=== PATIENT | female | born 1995 | race Caucasian/White ===

== ENCOUNTER 2017-07-13 09:07 | Emergency (ER) | payer SELFPAY ==
[2017-07-13 09:13] VITALS: RESP 18; TEMP 98
--- NOTE | 2017-07-13 09:44 | C.PDOC ---
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 ACCID STUCK BW CAR DOOR. CO PAIN, CUT TO FINGER. NO OTHER ASSOC SX OR INJURY EXMA NAD EXT L HAND +SUPERFICIAL U-SHAPED LAC OVER CUTICLE FOLD L 2ND FINGER. <2 MM SUBCONJ HEMATOMA NEAR NAIL FOLD. NO DEFORM. AROM WO DIFF. +BRUISING FINGER PAD NEURO INTACT REMAINDER NEG Time Seen by Provider: 07/13/17 09:39 Chief Complaint (Nursing): Finger,Hand,&Wrist History Per: Patient History/Exam Limitations: no limitations Onset/Duration Of Symptoms: Sudden Onset (HEAD OF MERCHANDISE BUYING) Current Symptoms Are (Timing): Still Present Past Medical History Reviewed: Historical Data, Nursing Documentation, Vital Signs Vital Signs: Last Vital Signs Temp 98 F 07/13/17 09:11 Pulse 72 07/13/17 09:59 Resp 18 07/13/17 09:59 BP 136/75 07/13/17 09:59 Pulse Ox 98 07/13/17 09:59 Family History: States: No Known Family Hx - Social History Hx Alcohol Use: No Hx Substance Use: No - Immunization History Hx Tetanus Toxoid Vaccination: No Hx Influenza Vaccination: No Hx Pneumococcal Vaccination: No Review Of Systems Except As Marked, All Systems Reviewed And Found Negative. Musculoskeletal: Positive for: Other ((+) Left 2nd finger injury.). Negative for: Neck Pain, Shoulder Pain Neurological: Negative for: Weakness, Numbness Physical Exam - Physical Exam Appears: Non-toxic, No Acute Distress Skin: Warm, Dry Head: Atraumatic, Normacephalic Oral Mucosa: Moist Cardiovascular: Rhythm Regular, No Murmur Respiratory: Normal Breath Sounds, No Rales, No Rhonchi, No Stridor, No Wheezing Extremity: Normal ROM, Capillary Refill (<2 secs), No Deformity, Other (LEFT HAND SUPERFICIAL U-SHAPED LACERATION OVER CUTICLE FOLD L 2ND FINGER. <2 MM SUBCONJ HEMATOMA NEAR NAIL FOLD. ) Neurological/Psych: Oriented x3, Normal Speech, Normal Motor ED Course And Treatment O2 Sat by Pulse Oximetry: 100 (RA) Pulse Ox Interpretation: Normal () - Other Rad X-Ray - Left Hand, 2nd Finger X-Ray: Interpreted by Me, Viewed By Me Interpretation: Neg. Laceration - Laceration Repair 2 Wound Length (In cm): 2 Description Of Wound: Irregular Wound Cleansed With: Betadine, Sterile Saline Wound Examination: Irrigated With Saline, No FB With Wound Exploration, No Tendon Injury With Wound Exploration Wound Closure: Skin Glue Wound Complexity: Simple Medical Decision Making Medical Decision Making: PLAN: * X-Ray - Left Hand, 2nd Finger * Tylenol PO Disposition Counseled Patient/Family Regarding: Studies Performed, Diagnosis, Need For Followup - Disposition Referrals: Frantz Osborn MD [Staff Provider] - Disposition: HOME/ ROUTINE Disposition Time: 09:47 Condition: IMPROVED Instructions: Subungual Hematoma (ED), Skin Adhesive Care (ED) Forms: Skin Scan (Frisian), School Excuse, Work Excuse - Clinical Impression Clinical Impression: Finger contusion, Finger laceration, Subungual contusion of finger - Scribe Statement The provider has reviewed the documentation as recorded by the Shondaibe Tesha Webb Provider Attestation: All medical record entries made by the Shondaibrich were at my direction and personally dictated by me. I have reviewed the chart and agree that the record accurately reflects my personal performance of the history, physical exam, medical decision making, and the department course for this patient. I have also personally directed, reviewed, and agree with the discharge instructions and disposition. Orthopedic Care Application Of:: Finger Splint
[2017-07-13 10:00] VITALS: BP 136/75; PULSE 72
--- NOTE | 2017-07-13 10:30 | RAD ---
PROCEDURE: Left Index finger radiographs. HISTORY: TRAUMA COMPARISON: None available. TECHNIQUE: AP radiograph of the left hand, as well as spot oblique and lateral images of index finger were obtained. FINDINGS: LEFT INDEX FINGER: Unremarkable left index finger, without acute displaced fracture identified. Remainder of the left hand (as seen on the AP view) grossly intact. JOINTS: No dislocation. SOFT TISSUES: Unremarkable. No evidence of radiopaque foreign body. OTHER FINDINGS: None. IMPRESSION: No acute displaced fracture or subluxation identified. If symptoms persist or if there is continued clinical concern, x-ray follow-up in 7-10 days should be considered.
[2017-07-13 10:38] VITALS: O2SAT 100
== END 2017-07-13 10:00 | disposition home or self-care (01) ==
LOC: C.ER 09:07
DX: S61.211A Laceration without foreign body of left index finger without damage to nail, initial encounter (principal); S60.122A Contusion of left index finger with damage to nail, initial encounter; W23.0XXA Caught, crushed, jammed, or pinched between moving objects, initial encounter

== ENCOUNTER 2018-04-25 16:42 | Emergency (ER) | payer OTHER ==
--- NOTE | 2018-04-25 17:17 | C.PDOC ---
History Of Present Illness 23 y/o female presents to ED with c/o right ankle pain after walking and twisting foot yesterday. Patient is able to ambulate with no difficulties. Denies change in sensation, weakness, or any other complaints at this time. Time Seen by Provider: 04/25/18 17:01 Chief Complaint (Nursing): Lower Extremity Problem/Injury History Per: Patient History/Exam Limitations: no limitations Onset/Duration Of Symptoms: Days Current Symptoms Are (Timing): Still Present Past Medical History Reviewed: Historical Data, Nursing Documentation, Vital Signs Vital Signs: Last Vital Signs Temp 99.5 F 04/25/18 18:14 Pulse 85 04/25/18 18:14 Resp 18 04/25/18 18:14 BP 122/82 04/25/18 18:14 Pulse Ox 97 04/25/18 18:36 - Medical History PMH: No Chronic Diseases Surgical History: No Surg Hx Family History: States: No Known Family Hx - Social History Hx Alcohol Use: No Hx Substance Use: No - Immunization History Hx Tetanus Toxoid Vaccination: No Hx Influenza Vaccination: No Hx Pneumococcal Vaccination: No Review Of Systems Musculoskeletal: Positive for: Foot Pain. Negative for: Leg Pain Skin: Negative for: Rash, Bruising Neurological: Negative for: Weakness, Numbness Physical Exam - Physical Exam Appears: Non-toxic, No Acute Distress Skin: Warm, Dry, No Rash Head: Atraumatic, Normacephalic Eye(s): bilateral: Normal Inspection, EOMI Nose: Normal Oral Mucosa: Moist Neck: Supple Chest: Symmetrical Respiratory: No Accessory Muscle Use Extremity: Normal ROM, Tenderness (to right lateral malleolus), No Calf Tenderness, Capillary Refill (<2 seconds), No Deformity, Swelling (to right lateral malleolus) Pulses: Left Dorsalis Pedis: Normal, Right Dorsalis Pedis: Normal Neurological/Psych: Oriented x3, Normal Motor, Normal Sensation ED Course And Treatment O2 Sat by Pulse Oximetry: 97 (RA) Pulse Ox Interpretation: Normal Progress Note: xray showed no fracture or dislocation. Aircast applied by clinical laboratory technologist and patient instructed RICE with follow up to ortho in 1-2 days. Disposition - Disposition Referrals: Christopher Dawn III, MD [Staff Provider] - Disposition: HOME/ ROUTINE Disposition Time: 17:15 Condition: STABLE Additional Instructions: Rest, ice and elevate the area. 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 - Scribe Statement The provider has reviewed the documentation as recorded by the Shondaibrich Pennington All medical record entries made by the Ari were at my direction and personally dictated by me. I have reviewed the chart and agree that the record accurately reflects my personal performance of the history, physical exam, medical decision making, and the department course for this patient. I have also personally directed, reviewed, and agree with the discharge instructions and disposition.
[2018-04-25 18:14] VITALS: BP 122/82; PULSE 85; RESP 18; TEMP 99.5
--- NOTE | 2018-04-25 18:18 | RAD ---
Date of service: 04/25/2018 PROCEDURE: Right Ankle Radiographs. HISTORY: sprain COMPARISON: None FINDINGS: BONES: No acute fracture. JOINTS: Ankle mortise maintained. Talar dome intact SOFT TISSUES: Bimalleolar soft tissue swelling OTHER FINDINGS: Small ankle joint effusion. IMPRESSION: Bimalleolar soft tissue swelling and small ankle joint effusion without demonstrated fracture or dislocation.
[2018-04-25 18:35] VITALS: O2SAT 97
== END 2018-04-25 18:20 | disposition home or self-care (01) ==
LOC: C.ER 16:42
DX: S93.401A Sprain of unspecified ligament of right ankle, initial encounter (principal); X50.9XXA Other and unspecified overexertion or strenuous movements or postures, initial encounter; Y93.01 Activity, walking, marching and hiking

== ENCOUNTER 2018-06-14 08:18 | Emergency (ER) | payer OTHER ==
[2018-06-14 08:29] VITALS: BP 156/80; PULSE 80; RESP 20; TEMP 98.4; O2SAT 100
--- NOTE | 2018-06-14 09:52 | C.PDOC ---
History Of Present Illness 23 year old female presents to the ED for evaluation of a persistent cough, subjected fever and congestion which began 6 days ago. Patient has tried [id number] medications without relief. She has not taken any medication today. Patient denies sore throat, shortness of breath, leg swelling, n/v/d, or abdominal pain. Time Seen by Provider: 06/14/18 08:25 Chief Complaint (Nursing): Cough, Cold, Congestion History Per: Patient History/Exam Limitations: no limitations Onset/Duration Of Symptoms: Hrs Current Symptoms Are (Timing): Still Present Associated Symptoms: Fever, Cough, Nasal Congestion Additional History Per: Patient Past Medical History Reviewed: Historical Data, Nursing Documentation, Vital Signs Vital Signs: Last Vital Signs Temp 98.4 F 06/14/18 08:24 Pulse 80 06/14/18 08:24 Resp 20 06/14/18 08:24 BP 156/80 H 06/14/18 08:24 Pulse Ox 100 06/14/18 08:24 - Medical History PMH: No Chronic Diseases Surgical History: No Surg Hx Family History: States: Unknown Family Hx - Social History Hx Alcohol Use: No Hx Substance Use: No - Immunization History Hx Tetanus Toxoid Vaccination: Yes Hx Influenza Vaccination: No Hx Pneumococcal Vaccination: (unk) Review Of Systems Constitutional: Positive for: Fever ENT: Positive for: Nose Congestion Respiratory: Positive for: Cough, Sputum. Negative for: Shortness of Breath Physical Exam - Physical Exam Appears: Non-toxic, No Acute Distress Skin: Normal Color, Warm, Dry Head: Atraumatic, Normacephalic Eye(s): bilateral: Normal Inspection, EOMI Ear(s): Bilateral: Normal Nose: Normal, No Discharge Oral Mucosa: Moist Throat: Normal, No Erythema, No Exudate Neck: Normal ROM, Supple Chest: Symmetrical, No Deformity, No Tenderness Cardiovascular: Rhythm Regular Respiratory: Normal Breath Sounds, No Rales, No Rhonchi, No Wheezing Extremity: Normal ROM, Capillary Refill (less than 2 seconds ) Neurological/Psych: Oriented x3, Normal Speech, Normal Cognition ED Course And Treatment O2 Sat by Pulse Oximetry: 100 (on RA ) Pulse Ox Interpretation: Normal - Other Rad CXR X-Ray: Interpreted by Me, Viewed By Me, Read By Radiologist Interpretation: Date of service: 06/14/2018. HISTORY: pain. COMPARISON: No prior. TECHNIQUE: Chest PA and lateral. FINDINGS: LUNGS: No active pulmonary disease. PLEURA: No significant pleural effusion identified. No pneumothorax apparent. CARDIOVASCULAR: Normal. OSSEOUS STRUCTURES: No significant abnormalities. VISUALIZED UPPER ABDOMEN: Normal. OTHER FINDINGS: None. IMPRESSION: No active disease. Progress Note: CXR ordered and reviewed. On reassessment, patient is resting comfortably, remains afebrile, and is showing no signs of distress. No chest pain. No sob. tolerating po. Patient is stable for discharge and is advised to f/u with PMD within 1-2 days for further evaluation. Disposition - Disposition Disposition: HOME/ ROUTINE Disposition Time: 09:50 Condition: STABLE Additional Instructions: Vaya a barnard mdico o la clnica en 2-5 fuller sin falta, para mas evaluacin. [place] los medicamentos steff indicado. Volver a la issac de emergencia en cualquier momento si los sntomas persisten o empeoran. Prescriptions: Azithromycin [Zithromax] 250 mg PO DAILY #6 tab Benzonatate [Tessalon Perle] 100 mg PO TID PRN #15 capsule PRN Reason: Cough Instructions: Acute Bronchitis, Adult (DC) Forms: [employer] (Taiwanese), Work Excuse Print Language: BRUNEIAN - Clinical Impression Clinical Impression: Bronchitis - PA / SIEVE MAKER / Resident Statement MD/DO has reviewed & agrees with the documentation as recorded. - Scribe Statement The provider has reviewed the documentation as recorded by the Scribe (Ayse Andre) All medical record entries made by the Scribe were at my direction and personally dictated by me. I have reviewed the chart and agree that the record accurately reflects my personal performance of the history, physical exam, medical decision making, and the department course for this patient. I have also personally directed, reviewed, and agree with the discharge instructions and disposition.
--- NOTE | 2018-06-14 10:01 | RAD ---
Date of service: 06/14/2018 HISTORY: pain COMPARISON: No prior. TECHNIQUE: Chest PA and lateral FINDINGS: LUNGS: No active pulmonary disease. PLEURA: No significant pleural effusion identified. No pneumothorax apparent. CARDIOVASCULAR: Normal. OSSEOUS STRUCTURES: No significant abnormalities. VISUALIZED UPPER ABDOMEN: Normal. OTHER FINDINGS: None. IMPRESSION: No active disease.
== END 2018-06-14 10:23 | disposition home or self-care (01) ==
LOC: C.ER 08:18
DX: J40 Bronchitis, not specified as acute or chronic (principal)

== ENCOUNTER 2018-06-16 08:26 | Emergency (ER) | payer OTHER ==
[2018-06-16 08:38] VITALS: BP 123/85; PULSE 63; RESP 18; TEMP 99.3; O2SAT 98
--- NOTE | 2018-06-16 09:08 | C.PDOC ---
History Of Present Illness 23-year-old female, presents to the Emergency Department with complaints of a productive cough x2 weeks. Patient states she feels nauseated, she was seen in ED two days ago and is taking antibiotics. Denies shortness of breath, nausea/vomiting, fever or chills. Patient needs work excuse note. Time Seen by Provider: 06/16/18 08:51 Chief Complaint (Nursing): Cough, Cold, Congestion History Per: Patient History/Exam Limitations: no limitations Past Medical History Reviewed: Historical Data, Nursing Documentation, Vital Signs Vital Signs: Last Vital Signs Temp 99.3 F 06/16/18 08:37 Pulse 63 06/16/18 08:37 Resp 18 06/16/18 08:37 BP 123/85 06/16/18 08:37 Pulse Ox 98 06/16/18 08:37 Family History: States: No Known Family Hx - Social History Hx Alcohol Use: No Hx Substance Use: No - Immunization History Hx Tetanus Toxoid Vaccination: Yes Hx Influenza Vaccination: No Hx Pneumococcal Vaccination: (unk) Review Of Systems Constitutional: Negative for: Fever, Chills Cardiovascular: Negative for: Chest Pain Respiratory: Positive for: Cough, Sputum Gastrointestinal: Positive for: Nausea. Negative for: Vomiting Musculoskeletal: Negative for: Back Pain Skin: Negative for: Rash Neurological: Negative for: Weakness Physical Exam - Physical Exam Appears: Non-toxic, No Acute Distress Skin: Warm, Dry, No Rash Head: Atraumatic Eye(s): bilateral: Normal Inspection Ear(s): Bilateral: Normal Nose: Normal Oral Mucosa: Moist Lips: Normal Appearing Throat: No Erythema, No Exudate, No Drooling, No Mass Neck: Normal ROM Cardiovascular: Rhythm Regular, No Murmur Respiratory: No Decreased Breath Sounds, No Accessory Muscle Use Extremity: Normal ROM, No Deformity Neurological/Psych: Oriented x3, Normal Speech ED Course And Treatment O2 Sat by Pulse Oximetry: 98 Pulse Ox Interpretation: Normal (RA) Disposition Counseled Patient/Family Regarding: Diagnosis, Need For Followup - Disposition Referrals: Darcy Pittman MD [Staff Provider] - Disposition: HOME/ ROUTINE Disposition Time: 09:07 Condition: STABLE Additional Instructions: Continuar y terminar el antibitico y la medicina para la tos. Por favor, consulte a barnard mdico para recibir ms atencin. Instructions: Acute Bronchitis, Adult (DC) Forms: Work Excuse Print Language: [place] - POA Present On Arrival: None - Clinical Impression Clinical Impression: Bronchitis, Encounter to obtain excuse from work - Scribe Statement The provider has reviewed the documentation as recorded by the Scribe (Govind Yoon) All medical record entries made by the Scribe were at my direction and personally dictated by me. I have reviewed the chart and agree that the record accurately reflects my personal performance of the history, physical exam, medical decision making, and the department course for this patient. I have also personally directed, reviewed, and agree with the discharge instructions and disposition.
== END 2018-06-16 09:22 | disposition home or self-care (01) ==
LOC: C.ER 08:26 → C.5E 09:01 → UNDOADMIN 09:01 → C.ER 09:22
DX: J40 Bronchitis, not specified as acute or chronic (principal); Z02.79 Encounter for issue of other medical certificate

== ENCOUNTER 2018-07-11 13:58 | Emergency (ER) | payer OTHER ==
[2018-07-11 14:04] VITALS: RESP 20
[2018-07-11] MEDS ORDERED: Sodium Chloride 0.9% 1,000 ML IV STA (14:58)
[2018-07-11] MEDS ORDERED: Dexamethasone 4 mg/1 ml IVP STA (14:58)
[2018-07-11 15:29] LABS: BASO % 0.6 % (0.0-2.0); EOS % 0.4 % (0.0-4.0); HEMOGLOBIN 12.7 g/dL (11.0-16.0); LYMPH # 1.4 K/uL (1.0-4.3); LYMPH % 17.3 % (20.0-40.0); MEAN CELL VOLUME 76.9 fL (81.0-99.0); MEAN CORPUSCULAR HEMOGLOBIN 26.5 pg (27.0-31.0); MEAN CORPUSCULAR HGB CONC 34.5 g/dL (33.0-37.0); MEAN PLATELET VOLUME 8.3 fL (7.2-11.7); MONO # 0.8 K/uL (0.0-0.8); MONO % 9.8 % (0.0-10.0); NEUT % 71.9 % (50.0-75.0); RBC 4.8 Mil/uL (3.80-5.20); RED CELL DISTRIBUTION WIDTH 15.5 % (11.5-14.5); WHITE BLOOD COUNT 8.4 K/uL (4.8-10.8)
[2018-07-11 15:34] LABS: HCG,QUALITATIVE URINE NEGATIVE (NEGATIVE)
[2018-07-11 15:43] LABS: ALB/GLOB RATIO 1.2 (1.0-2.1); ALBUMIN 4.5 g/dL (3.5-5.0); ALT/SGPT 23 U/L (9-52); AST/SGOT 22 U/L (14-36); BLOOD UREA NITROGEN 7 mg/dL (7-17); CALCIUM 9.6 mg/dl (8.6-10.4); GFR NON-AFRICAN AMERICAN > 60
[2018-07-11 15:46] LABS: SQUAMOUS EPITHIAL < 1 /hpf (0-5); URINE BACTERIA RARE (<OCC); URINE BILIRUBIN NEGATIVE (NEGATIVE); URINE BLOOD 3+ (NEGATIVE); URINE CLARITY Clear (Clear); URINE COLOR Yellow (YELLOW); URINE GLUCOSE (UA) NORMAL (Normal); URINE LEUKOCYTE ESTERASE TRACE Leu/uL (Negative); URINE PROTEIN NEGATIVE (NEGATIVE)
[2018-07-11] MEDS ORDERED: Sodium Chloride 0.9% 1,000 ML ONE (15:58)
[2018-07-11] MEDS ORDERED: Iodixanol 320 MG/ML 100 ML BOTTLE IV ONE (17:04)
[2018-07-11 17:56] VITALS: BP 125/83; PULSE 98; TEMP 99; O2SAT 98
--- NOTE | 2018-07-11 18:12 | CT ---
Date of service: 07/11/2018 PROCEDURE: CT NECK WITH CONTRAST HISTORY: PAIN/SWELLING COMPARISON: None available. TECHNIQUE: CT of the neck with intravenous contrast. Coronal and sagittal reformats generated. Intravenous contrast dose: 100 cc Visipaque 320 Radiation dose: Total exam DLP = 483.62 mGy-cm. This CT exam was performed using one or more of the following dose reduction techniques: Automated exposure control, adjustment of the mA and/or kV according to patient size, and/or use of iterative reconstruction technique. FINDINGS: NASOPHARYNX: Unremarkable. SUPRAHYOID NECK: Tonsillar hypertrophy. The palatine tonsils are enlarged bilaterally. No evidence of peritonsillar abscess. INFRAHYOID NECK: Unremarkable larynx, hypopharynx, and supraglottic space. Vocal cords intact. MASS: Lymphadenopathy asymmetrical left more pronounced than right including levels 1B, 2A and 2B. GLANDS: Parotid and submandibular glands unremarkable. Normal size thyroid gland, without nodule. LYMPH NODES: Normal. No lymphadenopathy. CERVICAL SPINE: No fracture or focal lesion. VASCULAR STRUCTURES: Unremarkable. OTHER FINDINGS: None. IMPRESSION: [place] tonsil enlargement bilaterally likely tonsillitis without para tonsillar abscess. Lymphadenopathy likely reactive involving the cervical chains on the left to a greater extent than the right.
--- NOTE | 2018-07-11 18:40 | C.PDOC ---
History Of Present Illness 23 y/o female presents to the ED complaining of pain to the right side of neck/sub-mandibular area, for the past 2 days. Associated with high fever at home. Otherwise patient denies any productive cough, congestion, SOB, wheezing, difficulty swallowing, or voice changes. Time Seen by Provider: 07/11/18 14:09 Chief Complaint (Nursing): ENT Problem History Per: Patient History/Exam Limitations: no limitations Onset/Duration Of Symptoms: Days Current Symptoms Are (Timing): Still Present Location Of Pain: Throat Sick Contacts (Context): None Associated Symptoms: Fever Past Medical History Reviewed: Historical Data, Nursing Documentation, Vital Signs Vital Signs: Last Vital Signs Temp 99 F 07/11/18 17:55 Pulse 98 H 07/11/18 17:55 Resp 20 07/11/18 17:55 BP 125/83 07/11/18 17:55 Pulse Ox 98 07/11/18 17:55 - Medical History PMH: No Chronic Diseases Surgical History: No Surg Hx Family History: States: Unknown Family Hx - Social History Hx Tobacco Use: No Hx Alcohol Use: No Hx Substance Use: No - Immunization History Hx Tetanus Toxoid Vaccination: Yes Hx Influenza Vaccination: No Hx Pneumococcal Vaccination: No (unk) Review Of Systems Except As Marked, All Systems Reviewed And Found Negative. Constitutional: Positive for: Fever Eyes: Negative for: Vision Change ENT: Positive for: Throat Pain. Negative for: Ear Pain, Nose Discharge, Nose Congestion, Throat Swelling, Other (difficulty swallowing) Cardiovascular: Negative for: Chest Pain Respiratory: Negative for: Cough, Shortness of Breath, Sputum Gastrointestinal: Negative for: Nausea, Vomiting Skin: Negative for: Rash Physical Exam - Physical Exam Appears: Non-toxic, No Acute Distress Skin: Warm, Dry, No Rash Head: Atraumatic, Normacephalic Eye(s): bilateral: Normal Inspection, PERRL, EOMI Ear(s): Bilateral: Normal (no erythema) Oral Mucosa: Moist Throat: Erythema (mild tonsillar erythema), No Exudate, No Mass, Other (mild ton sillar enlargement) Neck: Trachea Midline, No Midline Cervical Tenderness, Supple, Other (Tender to right submandibular area) Lymphatic: Adenopathy (Bilateral cervical lymphadenopathy) Cardiovascular: Rhythm Regular, No Murmur Respiratory: No Rales, No Rhonchi, No Wheezing Extremity: Bilateral: Atraumatic, Normal Color And Temperature Neurological/Psych: Oriented x3, Normal Speech ED Course And Treatment - Laboratory Results Result Diagrams: 07/11/18 15:23 07/11/18 15:23 O2 Sat by Pulse Oximetry: 98 (RA) Pulse Ox Interpretation: Normal - CT Scan/US CT neck/soft tissue Other Rad Studies (CT/US): Read By Radiologist, Radiology Report Reviewed CT/US Interpretation: Accession No. : [id number]. Patient Name / ID : KINGS WOODS / [id number]. Exam Date : 07/11/2018 17:20:04 ( Approved ). Study Comment : Sex / Age : F / 23Y. Creator : Sherrie Nichole. Dictator : Elder Romano MD. Artists' Booking Representative : Vegetable Tester : Elder Romano MD. Approver2 : Report Date : 07/11/2018 17:27:33. My Comment : . Date of service: 07/11/2018. PROCEDURE: CT NECK WITH CONTRAST. HISTORY: PAIN/SWELLING. COMPARISON: None available. TECHNIQUE: CT of the neck with intravenous contrast. Coronal and sagittal reformats generated. Intravenous contrast dose: 100 cc Visipaque 320. Radiation dose: Total exam DLP = 483.62 mGy-cm. This CT exam was performed using one or more of the following dose reduction techniques: Automated exposure control, adjustment of the mA and/or kV according to patient size, and/or use of iterative reconstruction technique. FINDINGS: NASOPHARYNX: Unremarkable. SUPRAHYOID NECK: Tonsillar hypertrophy. The palatine tonsils are enlarged bilaterally. No evidence of peritonsillar abscess. INFRAHYOID NECK: Unremarkable larynx, hypopharynx, and supraglottic space. Vocal cords intact. MASS: Lymphadenopathy asymmetrical left more pronounced than right including levels 1B, 2A and 2B. GLANDS: Parotid and submandibular glands unremarkable. Normal size thyroid gland, without nodule. LYMPH NODES: Normal. No lymphadenopathy. CERVICAL SPINE: No fracture or focal lesion. VASCULAR STRUCTURES: Unremarkable. OTHER FINDINGS: None. IMPRESSION: [place] tonsil enlargement bilaterally likely tonsillitis without para tonsillar abscess. Lymphadenopathy likely reactive involving the cervical chains on the left to a greater extent than the right. Progress Note: Temp is 102 on arrival. Tylenol PO given in triage. Treated patient with IV fluids, IV Toradol, and Decadron. Blood work and urine sent. Rapid strep, mono stat, and cultures ordered. Labs reviewed, negative strep. Mo nostat negative. Ordered CT soft tissue/neck for further evaluation. Patient counseled regarding CT results, and course of discharge. Patient will be discharged home with rx for antibiotics and motrin. Advised to follow up with PMD for further evaluation. Disposition - Disposition Disposition: HOME/ ROUTINE Disposition Time: 18:38 Condition: STABLE Additional Instructions: Follow up with PMD within 1-2 days. Return to Ed if feel worse. Prescriptions: Amoxicillin 500 mg PO Q8 #30 tab Ibuprofen [Motrin Tab] 600 mg PO Q8 #30 tab Instructions: Sore Throat in Adults Forms: [employer] (Serbian), Work Excuse - Clinical Impression Clinical Impression: Tonsillitis - PA / OXYGEN THERAPIST / Resident Statement MD/DO has reviewed & agrees with the documentation as recorded. - Scribe Statement The provider has reviewed the documentation as recorded by the Scribe (Ashley Holliday) All medical record entries made by the Scribe were at my direction and personally dictated by me. I have reviewed the chart and agree that the record accurately reflects my personal performance of the history, physical exam, medical decision making, and the department course for this patient. I have also personally directed, reviewed, and agree with the discharge instructions and disposition.
== END 2018-07-11 18:45 | disposition home or self-care (01) ==
LOC: C.ER 13:58
DX: J03.90 Acute tonsillitis, unspecified (principal)
CPT/HCPCS: 70491; 80053; 81001; 84703; 85025; 86308; 87040; 87070; 87430; 96374; 99284; J1100; J1885; J7030; Q9967

== ENCOUNTER 2018-07-14 12:21 | Emergency (ER) | payer OTHER ==
[2018-07-14 12:42] VITALS: O2SAT 100
[2018-07-14 13:53] LABS: BASO # 0.1 K/uL (0.0-0.2); BASO % 0.5 % (0.0-2.0); EOS % 0.3 % (0.0-4.0); HEMOGLOBIN 12.9 g/dL (11.0-16.0); LYMPH # 2.2 K/uL (1.0-4.3); LYMPH % 20.9 % (20.0-40.0); MEAN CELL VOLUME 77.3 fL (81.0-99.0); MEAN CORPUSCULAR HEMOGLOBIN 26.9 pg (27.0-31.0); MEAN CORPUSCULAR HGB CONC 34.8 g/dL (33.0-37.0); MEAN PLATELET VOLUME 8.2 fL (7.2-11.7); MONO # 1.1 K/uL (0.0-0.8); MONO % 10.6 % (0.0-10.0); NEUT # 7.2 K/uL (1.8-7.0); NEUT % 67.7 % (50.0-75.0); NRBC % 0.1 % (0.0-2.0); RBC 4.79 Mil/uL (3.80-5.20); RED CELL DISTRIBUTION WIDTH 15.6 % (11.5-14.5); WHITE BLOOD COUNT 10.6 K/uL (4.8-10.8)
--- NOTE | 2018-07-14 14:18 | C.PDOC ---
History Of Present Illness 23 y/o female with no significant PMH presents to the ED c/o worsening throat pain x 4 days. Pt was seen here for the same complaint 3 days ago on 07/11/18. During that visit, pt received workup to include labs and CT scan soft neck significant for bilateral tonsillitis. Pt was rapid strep, flu, and mono negative. She was discharged home with a prescription for Amoxicillin which she has been taking as directed. Pt here today because pain has not improved, and she is having difficulty swallowing and continued fever. Denies difficulty breathing, ear pain, congestion, cough, SOB, chest pain, abdominal pain, N/V, vision changes, headache, rash or any other associated symptoms. Time Seen by Provider: 07/14/18 12:57 Chief Complaint (Nursing): ENT Problem History Per: Patient History/Exam Limitations: no limitations Onset/Duration Of Symptoms: Days Current Symptoms Are (Timing): Still Present Location Of Pain: Throat Sick Contacts (Context): None Associated Symptoms: Fever, Sore Throat, Neck Pain Past Medical History Reviewed: Historical Data, Nursing Documentation, Vital Signs Vital Signs: Last Vital Signs Temp 99.1 F 07/14/18 12:39 Pulse 102 H 07/14/18 12:39 Resp 18 07/14/18 12:39 BP 121/88 07/14/18 12:39 Pulse Ox 100 07/14/18 12:39 - Medical History PMH: No Chronic Diseases Family History: States: Unknown Family Hx - Social History Hx Tobacco Use: No Hx Alcohol Use: No Hx Substance Use: No - Immunization History Hx Tetanus Toxoid Vaccination: No Hx Influenza Vaccination: No Hx Pneumococcal Vaccination: No (unk) Review Of Systems Except As Marked, All Systems Reviewed And Found Negative. Constitutional: Positive for: Fever. Negative for: Chills Eyes: Negative for: Vision Change, Redness ENT: Positive for: Throat Pain, Throat Swelling. Negative for: Ear Pain, Nose Pain, Nose Congestion, Mouth Pain, Mouth Swelling Cardiovascular: Negative for: Chest Pain, Palpitations, Light Headedness Respiratory: Negative for: Cough, Shortness of Breath Gastrointestinal: Negative for: Nausea, Vomiting, Abdominal Pain Musculoskeletal: Positive for: Neck Pain. Negative for: Back Pain Skin: Negative for: Rash Neurological: Negative for: Weakness, Numbness, Headache, Dizziness Physical Exam - Physical Exam Appears: Well, Non-toxic, No Acute Distress, Other (morbidly obese) Skin: Normal Color, Warm, Dry Head: Atraumatic, Normacephalic, No Tenderness Eye(s): bilateral: Normal Inspection, PERRL, EOMI Ear(s): Bilateral: Normal Nose: Normal Oral Mucosa: Moist Tongue: Normal Appearing Lips: Normal Appearing Throat: Erythema (bilateral tonsils and soft palate), Exudate (bilateral ton sils), No Drooling, No Mass, Other (bilateral tonsil swelling) Neck: Normal ROM, Trachea Midline, No Midline Cervical Tenderness, Supple Lymphatic: Adenopathy (bilateral anterior cervical LN tender and swollen) Cardiovascular: Rhythm Regular Respiratory: Normal Breath Sounds Gastrointestinal/Abdominal: Normal Exam Back: Normal Inspection, No Decreased ROM Extremity: Normal ROM Extremity: Bilateral: Atraumatic, Normal Color And Temperature, Normal ROM Pulses: Left Radial: Normal, Right Radial: Normal Neurological/Psych: Oriented x3, Normal Speech, Normal Cognition, Normal Cranial Nerves, Normal Motor, Normal Sensation ED Course And Treatment - Laboratory Results Result Diagrams: 07/14/18 13:43 07/14/18 13:43 O2 Sat by Pulse Oximetry: 100 (RA) Pulse Ox Interpretation: Normal Medical Decision Making Medical Decision Making: Initial Plan * Repeat labs * Repeat flu * Call ENT; Dr. Kinjal Townsend saw the patient on 07/11/18. During today's visit, she saw and re-evaluated pt, states there is no change in throat exam from prior visit. CBC: wnl, WBC increased slightly from last visit, still wnl CMP: wnl Flu: neg 14:[address] Layton who recommends Decadron here in ED, Medrol Dose pack and Bactrim for home. Advised pt to followup today in his office. Plan of care discussed with patient, and strict instructions given regarding prescriptions, importance of follow up, and signs to return to Emergency Department, to include worsening pain, abdominal pain, vomiting, trouble breathing, or any other new/worsening symptoms. Patient verbalizes understanding of discussion. Patient A&Ox3, ambulating with steady gait, stable for discharge home. Impression: Pharyngitis Disposition Discussed With : Stefano Layton Comment: Recommends decadron in ED, with Bactrim and Medrol Dose Mehdi on discharge/ Will see patient today in office. Doctor Will See Patient In The: ED Counseled Patient/Family Regarding: Studies Performed, Diagnosis, Need For Followup, Rx Given - Disposition Referrals: Stefano Layton MD [Staff Provider] - Disposition: HOME/ ROUTINE Disposition Time: 14:30 Condition: IMPROVED Additional Instructions: Deje de marnie Amoxicillin, tome 1 pastilla de Bactrim cada 12 horas michael 10 fuller Reeds Medrol Dose Pack segn las indicaciones. Seguimiento con DR. Layton, el mdico de [facility], hoy despus de dejar el servicio de urgencias. Regrese al departamento de emergencias para detectar cualquier sntoma nuevo o que empeore. 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 - Scribe Statement The provider has reviewed the documentation as recorded by the Scribe (Cookie Lopez) All medical record entries made by the Scribe were at my direction and personally dictated by me. I have reviewed the chart and agree that the record accurately reflects my personal performance of the history, physical exam, medical decision making, and the department course for this patient. I have also personally directed, reviewed, and agree with the discharge instructions and disposition.
[2018-07-14 14:25] LABS: ALB/GLOB RATIO 1.2 (1.0-2.1); ALBUMIN 4.7 g/dL (3.5-5.0); ALT/SGPT 20 U/L (9-52); AST/SGOT 17 U/L (14-36); BLOOD UREA NITROGEN 8 mg/dL (7-17); CALCIUM 9.1 mg/dl (8.6-10.4); GFR NON-AFRICAN AMERICAN > 60
[2018-07-14] MEDS ORDERED: Tmp-Smz 800 mg-160 mg DS Tab PO STA (14:34)
[2018-07-14] MEDS ORDERED: Tmp-Smz 800 mg-160 mg DS Tab ONE (14:38)
[2018-07-14 14:41] VITALS: BP 116/88; PULSE 105; RESP 20; TEMP 98.3
== END 2018-07-14 14:44 | disposition home or self-care (01) ==
LOC: C.ER 12:21
DX: J02.9 Acute pharyngitis, unspecified (principal)
CPT/HCPCS: 80053; 85025; 87804; 96374; 99282; J1100

== ENCOUNTER 2018-10-15 09:32 | Emergency (ER) | payer SELFPAY ==
[2018-10-15 09:50] VITALS: BP 135/91; PULSE 83; RESP 16; TEMP 98; O2SAT 98
--- NOTE | 2018-10-15 10:35 | RAD ---
Date of service: 10/15/2018 PROCEDURE: Radiographs of the Lumbar Spine. HISTORY: LEFT LOW BACK PAIN COMPARISON: No prior. FINDINGS: BONES: Normal alignment. No listhesis. No fracture. DISC SPACES: Unremarkable. OTHER FINDINGS: None. IMPRESSION: No radiographic evidence of acute pathology at the lower spine
--- NOTE | 2018-10-15 10:37 | C.PDOC ---
History Of Present Illness 23 y/o female comes in to ED complaining of left mid to low back pain since yesterday. Patient states she moved in to a new house and was lifting a lot of boxes, and she has not tried any medications for the pain. Patient denies direct trauma, radiation of pain, fever, dysuria, hematuria, or abdominal pain. Time Seen by Provider: 10/15/18 09:50 Chief Complaint (Nursing): Back Pain History Per: Patient History/Exam Limitations: no limitations Onset/Duration Of Symptoms: Days Current Symptoms Are (Timing): Still Present Past Medical History Reviewed: Historical Data, Nursing Documentation, Vital Signs Vital Signs: Last Vital Signs Temp 98 F 10/15/18 09:47 Pulse 83 10/15/18 09:47 Resp 16 10/15/18 09:47 BP 135/91 H 10/15/18 09:47 Pulse Ox 98 10/15/18 09:47 Family History: States: No Known Family Hx - Social History Hx Tobacco Use: No Hx Alcohol Use: No Hx Substance Use: No - Immunization History Hx Tetanus Toxoid Vaccination: No Hx Influenza Vaccination: No Hx Pneumococcal Vaccination: No (unk) Review Of Systems Constitutional: Negative for: Fever, Chills Gastrointestinal: Negative for: Abdominal Pain Genitourinary: Negative for: Dysuria, Hematuria Musculoskeletal: Positive for: Back Pain (left mid to lower back) Physical Exam - Physical Exam Appears: Non-toxic, In Acute Distress (mild) Skin: Warm, Dry Head: Atraumatic, Normacephalic Eye(s): bilateral: Normal Inspection Oral Mucosa: Moist Neck: No Midline Cervical Tenderness, Supple Cardiovascular: Rhythm Regular, No Murmur Respiratory: Normal Breath Sounds, No Rales, No Rhonchi, No Wheezing Gastrointestinal/Abdominal: Soft, No Tenderness Back: No CVA Tenderness, Other (Tender to palpation paraspinally around L3 level) Extremity: Bilateral: Atraumatic, Normal ROM Neurological/Psych: Oriented x3, Normal Speech, Normal Motor, Normal Sensation Gait: Steady ED Course And Treatment O2 Sat by Pulse Oximetry: 98 (RA) Pulse Ox Interpretation: Normal - Other Rad Lumbar Spine XR X-Ray: Read By Radiologist Interpretation: FINDINGS: BONES: Normal alignment. No listhesis. No fracture. DISC SPACES: Unremarkable. OTHER FINDINGS: None. IMPRESSION: No radiographic evidence of acute pathology at the lower spine. Progress Note: Lumbar spine XR and urine test ordered. Patient was given flexeril and motrin PO, and will be discharged home. Instructed patient to follow up with PMD in 1-2 days for further evaluation and to return to the ER if symptoms worsen. Disposition Counseled Patient/Family Regarding: Studies Performed, Diagnosis, Need For Followup, Rx Given - Disposition Referrals: Chelsea Dominguez MD [Staff Provider] - Disposition: HOME/ ROUTINE Disposition Time: 10:35 Condition: STABLE Additional Instructions: FOLLOW UP WITH YOUR DOCTOR IN 1-2 DAYS USE MEDICATIONS DIRECTED RETURN TO EMERGENCY ROOM IF YOUR SYMPTOMS BECOME WORSE SEGUIR CON GUERRERO MDICO EN 1-2 JARAMILLO UTILICE MEDICAMENTOS OPAL SE DIRIGE VUELVA A LA JEFRY DE EMERGENCIA SI YANY SNTOMAS SE HACEN PEOR Prescriptions: Cyclobenzaprine [Flexeril] 10 mg PO BID PRN #15 tab PRN Reason: Muscle Spasm Ibuprofen [Motrin Tab] 600 mg PO Q6 PRN #30 tab PRN Reason: fever/pain Lidocaine 5% [Lidoderm] 1 patch TOP DAILY PRN #10 patch PRN Reason: pain Instructions: Low Back Pain (DC) Forms: [employer] (Bruneian), Work Excuse Print Language: THAI - Clinical Impression Clinical Impression: Lumbar back sprain - Scribe Statement The provider has reviewed the documentation as recorded by the Ari Guardado Provider Attestation: All medical record entries made by the Shondaibrich were at my direction and personally dictated by me. I have reviewed the chart and agree that the record accurately reflects my personal performance of the history, physical exam, medical decision making, and the department course for this patient. I have also personally directed, reviewed, and agree with the discharge instructions and disposition.
[2018-10-15] MEDS ORDERED: Lidocaine 5% Patch TD STA (10:41)
[2018-10-15] MEDS ORDERED: Lidocaine 5% Patch TD ONE (10:45)
== END 2018-10-15 10:48 | disposition home or self-care (01) ==
LOC: C.ER 09:32
DX: S33.5XXA Sprain of ligaments of lumbar spine, initial encounter (principal); X50.9XXA Other and unspecified overexertion or strenuous movements or postures, initial encounter